=== PATIENT | male | born 1985 | race Caucasian/White ===

== ENCOUNTER → 2017-09-29 | Outpatient (CLI) | payer SELFPAY ==
--- NOTE | 2017-09-29 08:56 | US ---
EXAMINATION TYPE: US abdomen complete DATE OF EXAM: 09/29/2017 COMPARISON: 03/25/2011 CLINICAL HISTORY: R10.11 Right upper quadrant pain. rt sided pain, doctor questioning fatty liver EXAM MEASUREMENTS: Liver Length: 17.4 cm Gallbladder Wall: 0.2 cm CBD: 0.6 cm Spleen: 14.8 cm Right Kidney: 10.9 x 5.0 x 5.4 cm Left Kidney: 12.7 x 4.4 x 5.1 cm Pancreas: wnl Liver: focal fatty sparring Gallbladder: wnl Evidence for sonographic Stephenson's sign: no CBD: wnl Spleen: enlarged Right Kidney: wnl Left Kidney: wnl Upper IVC: wnl Abd Aorta: wnl The liver is of increased echogenicity with areas of focal fatty sparing. The intrahepatic portion of the IVC and proximal abdominal aorta are within normal limits. There is no evidence of cholelithias is. Common bile duct is unremarkable. The visualized portions of the pancreas are homogenous. The spleen is unremarkable. Kidneys are symmetric and free of hydronephrosis. No renal lesions are seen . IMPRESSION: 1.The liver is of increased echogenicity consistent with hepatic steatosis with areas of focal fatty sparing.
== END | disposition home or self-care (01) ==
LOC: RADUSWWP 07:22
PROVIDERS: ATTEND Family Medicine
DX: R93.2 Abnormal findings on diagnostic imaging of liver and biliary tract (principal); R10.11 Right upper quadrant pain
CPT/HCPCS: 76700

== ENCOUNTER → 2018-03-27 | Outpatient (CLI) | payer OTHER ==
--- NOTE | 2018-03-27 10:04 | US ---
EXAMINATION TYPE: US venous doppler duplex UE BI DATE OF EXAM: 03/27/2018 COMPARISON: NONE CLINICAL HISTORY: R20.0 Anesthesia of skin. SIDE PERFORMED: Normal compressibility and spontaneous flow noted bilaterally. Right Arm: Negative for DVT Left Arm: Negative for DVT IMPRESSION: 1. No diagnostic evidence of DVT as visualized.
== END | disposition home or self-care (01) ==
LOC: RADUSWWP 08:54
PROVIDERS: ATTEND Family Medicine
DX: R20.0 Anesthesia of skin (principal)
CPT/HCPCS: 93970

== ENCOUNTER 2019-01-10 10:45 | Emergency (ER) | payer OTHER ==
[2019-01-10] MEDS ORDERED: IPRATROPIUM-ALBUTEROL 3 ML NEB INHALATION STA (11:35)
--- NOTE | 2019-01-10 11:46 | ED ---
URI HPI - General Chief Complaint: Upper Respiratory Infection Stated Complaint: CUONG,asthma Time Seen by Provider: 01/10/19 11:25 Source: patient Mode of arrival: ambulatory Limitations: no limitations - History of Present Illness Initial Comments: Patient is a 33-year-old male presenting to emergency Department with complaints of chest congestion, cough 3 days. Patient states he went to urgent care yesterday and received a breathing treatment which did improve his symptoms but he woke up today feeling worse again. Urgent care also told him that this is most likely ALLERGY related and to try Claritin. Patient states he has not tried that yet. He has not taken anything else [id number]. Patient denies any fever, chills, shortness of breath. Patient has history of asthma. Patient states he is coughing up some phlegm. No other complaints at this time. - Related Data Home Medications Medication Instructions Recorded Confirmed Albuterol Inhaler [Ventolin Hfa 1 - 2 puff INHALATION RT-Q6H PRN 09/10/17 09/10/17 Inhaler] Ibuprofen [Motrin Ib] 600 mg PO ONCE PRN 09/10/17 09/10/17 Phenylephrine/Dm/Acetaminop/GG 30 ml PO Q4H PRN 09/10/17 09/10/17 [Vicks Dayquil Severe Cold-Flu] Previous Rx's Medication Instructions Recorded Albuterol Nebulized [Ventolin 2.5 mg INHALATION Q4H PRN #25 nebu 01/10/19 Nebulized] Loratadine [Claritin] 10 mg PO DAILY 20 Days #20 tab 01/10/19 Phenylephrine/Dm/Acetaminop/GG 30 ml PO Q4HR PRN 5 Days #1 bottle 01/10/19 [Vicks Dayquil Severe Cold-Flu] Allergies Allergy/AdvReac Type Severity Reaction Status Date / Time latex Allergy Unknown Verified 09/10/17 21:25 Penicillins Allergy Unknown Verified 09/10/17 21:25 Review of Systems ROS Statement: Those systems with pertinent positive or pertinent negative responses have been documented in the HPI. ROS Other: All systems not noted in ROS Statement are negative. Past Medical History Past Medical History: No Reported History History of Any Multi-Drug Resistant Organisms: None Reported Past Surgical History: No Surgical Hx Reported Additional Past Surgical History / Comment(s): tumor removal right leg Past Psychological History: No Psychological Hx Reported Smoking Status: Never smoker Past Alcohol Use History: Rare Past Drug Use History: None Reported General Exam - General Exam Comments Initial Comments: GENERAL: Well-appearing, well-nourished and in no acute distress. HEAD: Atraumatic, normocephalic. EYES: Pupils equal round and reactive to light, extraocular movements intact, sclera anicteric, conjunctiva are normal. ENT: TMs normal, nares patent, oropharynx clear without exudates. Moist mucous membranes. NECK: Normal range of motion, supple without lymphadenopathy or JVD. LUNGS: Breath sounds clear to auscultation bilaterally and equal. No wheezes rales or rhonchi. HEART: Regular rate and rhythm without murmurs, rubs or gallops. ABDOMEN: Soft, nontender, normoactive bowel sounds. No guarding, no rebound. No masses appreciated. : Deferred EXTREMITIES: Normal range of motion, no pitting or edema. No clubbing or cyano sis. NEUROLOGICAL: Cranial nerves II through XII grossly intact. Normal speech, normal gait. PSYCH: Normal mood, normal affect. SKIN: Warm, Dry, normal turgor, no rashes or lesions noted. Limitations: no limitations Course Vital Signs 01/10/19 01/10/19 01/10/19 11:10 12:24 12:35 Temperature 98 F Pulse Rate 92 76 78 Respiratory 18 Rate Blood Pressure 118/78 O2 Sat by Pulse 98 Oximetry 01/10/19 13:07 Temperature 97.8 F Pulse Rate 79 Respiratory 16 Rate Blood Pressure 132/78 O2 Sat by Pulse 97 Oximetry Medical Decision Making - Medical Decision Making Patient was a 33-year-old male with complaints of chest congestion and cough 3 days. Patient states he went to urgent care yesterday and states they gave him a breathing treatment and stated this is likely related to ALLERGIES and/or viral nature. Patient states he returns today because he still having chest congestion and he believes he is wheezing. Patient does have a history of asthma. Patient's exam today is completely unremarkable. There is no wheezing lungs. Patient was given and another breathing treatment which he reports improvement. Chest x-ray was normal. Patient counseled this is likely viral ALLERGY related. Patient is given prescription for Claritin and his decongestant. Return parameters were discussed with patient he verbalized understanding. Patient will be discharged home. Case discussed with Dr. Gomez. Disposition Clinical Impression: Viral infection, Seasonal allergies Disposition: HOME SELF-CARE Condition: Stable Instructions (If sedation given, give patient instructions): Allergic Rhinitis (ED), Acute Cough (ED) Additional Instructions: Please return to the Emergency Department if symptoms worsen or any other concerns. Follow up with PCP as symptoms continue. Prescriptions: Loratadine [Claritin] 10 mg PO DAILY 20 Days #20 tab Albuterol Nebulized [Ventolin Nebulized] 2.5 mg INHALATION Q4H PRN #25 nebu PRN Reason: difficulty in breathing Phenylephrine/Dm/Acetaminop/GG [Vicks Dayquil Severe Cold-Flu] 30 ml PO Q4HR PRN 5 Days #1 bottle PRN Reason: Congestion Is patient prescribed a controlled substance at d/c from ED?: No Referrals: Irene Morton MD [Primary Care Provider] - 1-2 days
--- NOTE | 2019-01-10 12:31 | XR ---
EXAMINATION TYPE: XR chest 2V DATE OF EXAM: 01/10/2019 HISTORY: Cough/pain. REFERENCE: Previous study dated 09/10/2017. FINDINGS: The lungs are clear. Pleural spaces are clear. The heart is not enlarged. IMPRESSION: NORMAL CHEST.
[2019-01-10 13:08] VITALS: BP 132/78; PULSE 79; RESP 16; TEMP 97.8
== END 2019-01-10 13:07 | disposition home or self-care (01) ==
LOC: EC 10:45
DX: J30.2 Other seasonal allergic rhinitis (principal); B34.9 Viral infection, unspecified; Z88.0 Allergy status to penicillin; Z91.040 Latex allergy status
CPT/HCPCS: 71046; 94640; 99285

== ENCOUNTER → 2020-08-29 | Outpatient (CLI) | payer OTHER ==
--- NOTE | 2020-08-29 14:34 | US ---
EXAMINATION TYPE: US abdomen complete DATE OF EXAM: 08/29/2020 COMPARISON: CT March 29, 2011. Ultrasound abdomen September 29, 2017 CLINICAL HISTORY: R74.8 Elevated Liver [id number] elevated bilirubin. EXAM MEASUREMENTS: Liver Length: 18.3 cm Gallbladder Wall: 0.2 cm CBD: 0.3 cm Spleen: 13.8 cm Right Kidney: 12.0 x 4.1 x 6.10 cm Left Kidney: cm Pancreas: Tail obscured by overlying bowel gas Liver: enlarged, focal fatty sparing adjacent to gallbladder, fatty infiltrate Gallbladder: wnl Evidence for sonographic Stephenson's sign: no CBD: wnl Spleen: enlarged Right Kidney: Inferior pole obscured by bowel gas, no hydronephrosis or masses seen Left Kidney: No hydronephrosis or masses seen Upper IVC: wnl Abd Aorta: bifurcation obscured by overlying bowel gas The visualized liver is redemonstrated heterogeneously hyperechoic. The intrahepatic portion of the IVC and visualized abdominal aorta are within normal limits. There is no evidence of shadowing mobil e cholelithiasis. Common bile duct is unremarkable. The visualized portions of the pancreas are re ogenous. The spleen remains enlarged. Kidneys are symmetric and free of hydronephrosis. No renal l esions are seen on images saved. IMPRESSION: Splenomegaly redemonstrated. Heterogeneous hyperechoic appearance of liver redemonstrated And is thought to be on basis of diffuse fatty infiltration. No significant change from prior studi es.
== END ==
LOC: RADUSWWP 07:10
PROVIDERS: ATTEND Family Medicine
DX: R16.1 Splenomegaly, not elsewhere classified (principal); R93.2 Abnormal findings on diagnostic imaging of liver and biliary tract
CPT/HCPCS: 76700